=== PATIENT | female | born 1985 ===

== ENCOUNTER 2019-03-07 21:29 | Inpatient (IN) | payer OTHER ==
[~2019-03-07] VITALS: Ht 167.6 cm; Wt 67.6 kg
[2019-03-08] MEDS ORDERED: OBSTETRIX ONE1 EACH PO (08:09)
== END 2019-03-09 11:45 | disposition home or self-care (01) | DRG 807 ==
LOC: LDR 21:29 → OB/GYN 21:29
PROVIDERS: ADMIT Obstetrics & Gynecology
PROC: 4A1HXCZ Monitoring of Products of Conception, Cardiac Rate, External Approach (ICD-10-PCS; 2019-03-07)
PROC: 10E0XZZ Delivery of Products of Conception, External Approach (ICD-10-PCS; principal; 2019-03-07 23:00)
DX: O80 Encounter for full-term uncomplicated delivery (principal); Z37.0 Single live birth; Z3A.39 39 weeks gestation of pregnancy

== ENCOUNTER 2021-03-25 10:22 | Day surgery (SDC) | payer OTHER ==
[~2021-03-25 10:22] MED LIST: OBSTETRIX ONE1 EACH PO
== END 2021-03-25 15:30 | disposition home or self-care (01) ==
LOC: CIR.AMB 10:22
PROVIDERS: ATTEND Obstetrics & Gynecology
DX: N70.91 Salpingitis, unspecified (principal); Z20.822 Contact with and (suspected) exposure to COVID-19